=== PATIENT | male | born 1990 | race American Indian/Alaskan Native ===

== ENCOUNTER 2017-10-25 08:53 | Emergency (ER) | payer OTHER ==
[2017-10-25 09:15] VITALS: RESP 16; TEMP 99.1
[2017-10-25] MEDS ORDERED: Naproxen 550 mg Tab PO STA (09:39)
[2017-10-25] MEDS ORDERED: Naproxen 550 mg Tab PO ONE (09:43)
--- NOTE | 2017-10-25 10:40 | C.PDOC ---
Time Seen by Provider: 10/25/17 09:27 Chief Complaint (Nursing): Cough, Cold, Congestion History Per: Patient Onset/Duration Of Symptoms: Days (3) Current Symptoms Are (Timing): Still Present Associated Symptoms: Fever, Sore Throat, Cough, Myalgias, Nasal Congestion Severity: Moderate Recent travel outside of the [place]: Yes (to [facility]) Additional History Per: Prior Records Past Medical History Reviewed: Historical Data, Nursing Documentation, Vital Signs Vital Signs: Last Vital Signs Temp 99.1 F 10/25/17 09:11 Pulse 89 10/25/17 09:11 Resp 16 10/25/17 09:11 BP 132/83 10/25/17 09:11 Pulse Ox 99 10/25/17 09:11 - Medical History PMH: No Chronic Diseases Surgical History: No Surg Hx Family History: States: Unknown Family Hx - Social History Hx Tobacco Use: No Hx Alcohol Use: No Hx Substance Use: No - Immunization History Hx Tetanus Toxoid Vaccination: No Hx Influenza Vaccination: No Hx Pneumococcal Vaccination: No Review Of Systems Except As Marked, All Systems Reviewed And Found Negative. Constitutional: Positive for: Malaise ENT: Positive for: Nose Congestion. Negative for: Ear Pain Cardiovascular: Negative for: Chest Pain Respiratory: Positive for: Cough. Negative for: Shortness of Breath, Hemoptysis Gastrointestinal: Negative for: Vomiting, Abdominal Pain, Diarrhea Genitourinary: Negative for: Dysuria Musculoskeletal: Negative for: Neck Pain Skin: Negative for: Rash Neurological: Positive for: Headache. Negative for: Weakness, Numbness, Seizures, Altered Mental Status Physical Exam - Physical Exam Appears: Non-toxic, No Acute Distress Skin: Normal Color, Warm, Dry, No Rash Head: Atraumatic, Normacephalic Eye(s): bilateral: PERRL, EOMI Oral Mucosa: Moist, No Drooling, No Trismus Throat: Normal Neck: Normal ROM, Supple Lymphatic: No Adenopathy Cardiovascular: Rhythm Regular Respiratory: Normal Breath Sounds, No Accessory Muscle Use Gastrointestinal/Abdominal: Soft, No Tenderness Extremity: Normal ROM Neurological/Psych: Oriented x3, Normal Motor, Normal Sensation ED Course And Treatment O2 Sat by Pulse Oximetry: 99 Pulse Ox Interpretation: Normal Reassessment Condition: Improved Disposition Counseled Patient/Family Regarding: Studies Performed, Diagnosis, Need For Followup, Rx Given - Disposition Disposition: HOME/ ROUTINE Disposition Time: 10:41 Condition: IMPROVED Additional Instructions: Drink plenty of fluids. Follow up with your doctor. Return to the ER if you develop shortness of breath, worsening of symptoms or if you have any other concerns. Prescriptions: Naproxen [Naprosyn] 1 tab PO BID PRN #20 tab PRN Reason: Pain Instructions: Cold Symptoms (ED) Forms: [facility] (Romansh) - Clinical Impression Clinical Impression: Upper respiratory infection
[2017-10-25 10:47] VITALS: BP 121/78; PULSE 70; O2SAT 98
== END 2017-10-25 10:46 | disposition home or self-care (01) ==
LOC: C.ER 08:53
DX: J06.9 Acute upper respiratory infection, unspecified (principal)

== ENCOUNTER 2018-01-17 00:01 | Emergency (ER) | payer OTHER ==
[2018-01-17 00:26] VITALS: TEMP 98.3; O2SAT 98
[2018-01-17 01:34] LABS: BASO # 0.1 K/uL (0.0-0.2); EOS # 0.3 K/uL (0.0-0.7); EOS % 3.7 % (0.0-4.0); HEMOGLOBIN 14.7 g/dL (12.0-18.0); LYMPH # 3.5 K/uL (1.0-4.3); LYMPH % 40.8 % (20.0-40.0); MEAN CELL VOLUME 87.4 fL (80.0-94.0); MEAN CORPUSCULAR HEMOGLOBIN 29.5 pg (27.0-31.0); MEAN CORPUSCULAR HGB CONC 33.7 g/dL (33.0-37.0); MEAN PLATELET VOLUME 8.5 fL (7.2-11.7); MONO # 0.7 K/uL (0.0-0.8); MONO % 7.7 % (0.0-10.0); NEUT # 4.1 K/uL (1.8-7.0); NEUT % 46.8 % (50.0-75.0); NRBC % 0.1 % (0.0-2.0); RBC 4.98 Mil/uL (4.40-5.90); RED CELL DISTRIBUTION WIDTH 13.3 % (11.5-14.5); WHITE BLOOD COUNT 8.6 K/uL (4.8-10.8)
[2018-01-17 01:47] LABS: ALB/GLOB RATIO 1.3 (1.0-2.1); ALBUMIN 4.5 g/dL (3.5-5.0); ALT/SGPT 29 U/L (21-72); AST/SGOT 30 U/L (17-59); BLOOD UREA NITROGEN 16 mg/dL (9-20); CALCIUM 9.4 mg/dl (8.6-10.4); GFR AFRICAN-AMERICAN > 60; GFR NON-AFRICAN AMERICAN > 60
[2018-01-17] MEDS ORDERED: Iodixanol 320 MG/ML 100 ML BOTTLE IV ONE (02:04)
--- NOTE | 2018-01-17 03:30 | C.PDOC ---
History Of Present Illness 27 year old male presents to the ED c/o painful lump in the rectal region. Patient reports he developed painful lump on the rectal region that he noticed this morning. Patient states today he noticed yellow pus and fluid draining from the area. Patient reports pain worsened later which prompted visit to the ED. Patient denies fever, chill, prior history of abscess. Time Seen by Provider: 01/17/18 00:31 Chief Complaint (Nursing): Male Genitourinary History Per: Patient History/Exam Limitations: no limitations Onset/Duration Of Symptoms: Hrs Current Symptoms Are (Timing): Still Present Quality Of Discomfort: "Pain" Alleviating Factors: None Recent travel outside of the [place]: No Additional History Per: Patient Past Medical History Reviewed: Historical Data, Nursing Documentation, Vital Signs Vital Signs: Last Vital Signs Temp 98.3 F 01/17/18 00:23 Pulse 72 01/17/18 03:35 Resp 18 01/17/18 03:35 BP 122/70 01/17/18 03:35 Pulse Ox 98 01/17/18 03:44 - Medical History PMH: No Chronic Diseases Surgical History: No Surg Hx Family History: States: Unknown Family Hx - Social History Hx Tobacco Use: No Hx Alcohol Use: No Hx Substance Use: No - Immunization History Hx Tetanus Toxoid Vaccination: No Hx Influenza Vaccination: No Hx Pneumococcal Vaccination: No Review Of Systems Constitutional: Negative for: Fever, Chills Cardiovascular: Negative for: Chest Pain Respiratory: Negative for: Shortness of Breath Gastrointestinal: Negative for: Abdominal Pain Musculoskeletal: Positive for: Back Pain Skin: Negative for: Rash Neurological: Negative for: Weakness, Numbness Physical Exam - Physical Exam Appears: Non-toxic, No Acute Distress Skin: Normal Color, Warm, Dry Head: Atraumatic, Normacephalic Eye(s): bilateral: Normal Inspection Nose: No Discharge Oral Mucosa: Moist Neck: Normal ROM, Supple Chest: Symmetrical Cardiovascular: Rhythm Regular, No Murmur Respiratory: Normal Breath Sounds, No Rales, No Rhonchi, No Wheezing Gastrointestinal/Abdominal: Soft, No Tenderness, No Guarding, No Rebound Rectal: Mass, Tenderness (mass to the 9 o'clock to the rectal. No fluctuance, induration, no surrounding erythema) Extremity: Normal ROM Neurological/Psych: Oriented x3, Normal Motor, Normal Sensation Gait: Steady ED Course And Treatment - Laboratory Results Result Diagrams: 01/17/18 01:13 01/17/18 01:13 O2 Sat by Pulse Oximetry: 98 (On RA) Pulse Ox Interpretation: Normal - CT Scan/US CT pelvis Other Rad Studies (CT/US): Read By Radiologist, Radiology Report Reviewed CT/US Interpretation: FINDINGS: Bowel: The ischioanal and ischiorectal fossas as well as the gluteal soft tissues are unremarkable. No evidence of a perirectal or perianal abscess. No obstruction. No mucosal thickening. Appendix : No findings to suggest acute appendicitis. Intraperitoneal space: Unremarkable. No free air. No significant fluid collection. Bladder: Unremarkable. No mass. Reproductive: Unremarkable as visualized. Bones/joints : No acute fracture. No dislocation. Soft tissues: The ischioanal and ischiorectal fossas as well as the gluteal soft tissues are. unremarkable. Vasculature: Unremarkable. No lower abdominal aortic aneurysm. Lymph nodes: Unremarkable. No enlarged lymph nodes. IMPRESSIONNo evidence of a perirectal or perianal abscess. No acute findings. Medical Decision Making Medical Decision Making: Plan: * CT pelvis * Labs * Toradol 30 mg IVP No evidence of internal abscess or cellulitis on CT scan. Patient given antibiotics to cover for possible infection. Disposition - Disposition Referrals: Feroz Ceron MD [Staff Provider] - Carmencita Victor MD [Staff Provider] - Disposition: HOME/ ROUTINE Disposition Time: 03:28 Condition: GOOD Additional Instructions: Apply warm compresses to the region three times a day. Follow up with the medical doctor within 1-2 days. Return if worsened. 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 - Scribe Statement The provider has reviewed the documentation as recorded by the Scribe Asa King All medical record entries made by the Scribe were at my direction and personally dictated by me. I have reviewed the chart and agree that the record accurately reflects my personal performance of the history, physical exam, medical decision making, and the department course for this patient. I have also personally directed, reviewed, and agree with the discharge instructions and disposition.
[2018-01-17 03:36] VITALS: BP 122/70; PULSE 72; RESP 18
--- NOTE | 2018-01-17 09:50 | CT ---
PROCEDURE: CT Pelvis with contrast HISTORY: rectal pain, lew-rectal abscess COMPARISON: None. TECHNIQUE: Contrast dose: 100 mL Visipaque 320 Radiation dose: Total exam DLP = 283.5 mGy-cm. This CT exam was performed using one or more of the following dose reduction techniques: Automated exposure control, adjustment of the mA and/or kV according to patient size, and/or use of iterative reconstruction technique. FINDINGS: VASCULATURE: Unremarkable. No aortic aneurysm. BOWEL: Unremarkable. No obstruction. No gross mural thickening. APPENDIX: Normal appendix. PERITONEUM: Ileoanal in the ischiorectal fossas as well as gluteal soft tissues are unremarkable. No free fluid. No free air. LYMPH NODES: Unremarkable. No enlarged lymph nodes. BLADDER: Unremarkable. REPRODUCTIVE: Unremarkable. BONES: No acute fracture. OTHER FINDINGS: None. IMPRESSION: No evidence of perirectal or perianal abscess. No acute pelvic pathology.
== END 2018-01-17 03:35 | disposition home or self-care (01) ==
LOC: C.ER 00:01
DX: K64.9 Unspecified hemorrhoids (principal)
CPT/HCPCS: 72193; 80053; 85025; 96374; 99284; J1885; Q9967